=== PATIENT | male | born 1975 | race Caucasian/White ===

== ENCOUNTER 2019-05-20 15:02 | Emergency (ER) | payer MEDICAID ==
[2019-05-20 15:09] VITALS: Wt 70.0 kg
[2019-05-20 17:15] VITALS: BP 144/82
== END 2019-05-20 17:21 | disposition short-term general hospital (02) ==
LOC: D.ER 15:02
DX: S05.51XA Penetrating wound with foreign body of right eyeball, initial encounter (principal)